=== PATIENT | male | born 1980 ===

== ENCOUNTER 2019-05-21 18:15 | Emergency (ER) | payer OTHER ==
[2019-05-21] MEDS ORDERED: Diazepam TAB(*) 5 MG PO ONE (19:42)
[2019-05-21] MEDS ORDERED: Ketorolac INJ* 30 MG/ML 1 ML VIAL IV PUSH ONE (19:42)
--- NOTE | 2019-05-21 20:29 | ED ---
Back Pain - HPI Summary HPI Summary: Pt is a 39 y/o M presenting to the ED brought in by EMS for back pain. He states he was walking down a flight of stairs at 1100 today when he felt a sudden sharp pain in his back, causing him to lie on the floor for about 6 hours until EMS was called. He denies any trauma or injury to the area, fever, incontinence, numbness, tingling, dysuria, or hematuria. He states lying flat alleviates the pain somewhat. Any movement worsens the pain. He has not taken any pain medication CLINICAL PSYCHOLOGIST LICENSED. - History of Current Complaint Chief Complaint: EDBackInjuryPain Stated Complaint: BACK PAIN PER EMS Time Seen by Provider: 05/21/19 19:24 Hx Obtained From: Patient Onset/Duration: Sudden Onset, Lasting Hours, Still Present Onset/Duration: Started Hours Ago, Still Present Timing: Constant, Lasting Hours Back Pain Location: Is Discrete @ - R lower back Severity Initially: Severe Severity Currently: Severe Pain Intensity: 10 Pain Scale Used: 0-10 Numeric Aggravating Symptom(s): Movement Alleviating Symptom(s): Rest Associated Signs And Symptoms: Negative: Fever, Numbness, Tingling, Bladder Incontinence, Bowel Incontinence - Allergies/Home Medications Allergies/Adverse Reactions: Allergies Allergy/AdvReac Type Severity Reaction Status Date / Time orange Allergy Difficulty Verified 05/21/19 18:34 Breathing PMH/Surg Hx/FS Hx/Imm Hx Previously Healthy: Yes Endocrine/Hematology History: Denies: Hx Diabetes Cardiovascular History: Denies: Hx Hypertension Infectious Disease History: No Infectious Disease History: Denies: Traveled Outside the [place] in Last 30 Days - Family History Known Family History: Negative: Diabetes - Social History Occupation: Student Alcohol Use: Occasionally Hx Substance Use: No Substance Use Type: Reports: None Hx Tobacco Use: No Smoking Status (MU): Never Smoked Tobacco Review of Systems Negative: Fever Negative: dysuria, hematuria, incontinence Positive: Myalgia - back pain Negative: Paresthesia, Numbness All Other Systems Reviewed And Are Negative: Yes Physical Exam - Summary Physical Exam Summary: Constitutional: Well-developed, Well-nourished, Alert. (-) Distressed Skin: Warm, Dry HENT: Normocephalic; Atraumatic Eyes: Conjunctiva normal Neck: Musculoskeletal ROM normal neck. (-) JVD, (-) Stridor, (-) Tracheal deviation Cardio: Rhythm regular, rate normal, Heart sounds normal; Intact distal pulses; Radial pulses are 2+ and symmetric. (-) Murmur Pulmonary/Chest wall: Effort normal. (-) Respiratory distress, (-) Wheezes, (-) Rales Abd: Soft, (-) tenderness, (-) Distension, (-) Guarding, (-) Rebound Musculoskeletal: (-) Edema. Point tenderness on R lower back lateral to midline. Pt able to range at both hips. No numbness bilaterally. Lymph: (-) Cervical adenopathy Neuro: Alert, Oriented x3 Psych: Mood and affect Normal Back: No CVA tenderness. Triage Information Reviewed: Yes Vital Signs On Initial Exam: Initial Vitals Pulse BP Pulse Ox 63 116/71 99 05/21/19 18:21 05/21/19 18:21 05/21/19 18:21 Vital Signs Reviewed: Yes Procedures - Procedure Summary Procedure Summary: Trigger point injection of 4cc of 1% lidocaine to the R lower back. - Sedation Patient Received Moderate/Deep Sedation with Procedure: No Diagnostics - Vital Signs Vital Signs Temp Pulse Resp BP Pulse Ox 05/21/19 19:58 20 05/21/19 19:22 64 101/51 95 05/21/19 19:00 66 100 05/21/19 18:52 67 101/54 98 05/21/19 18:32 97.2 F 66 16 116/71 100 05/21/19 18:21 63 116/71 99 - Laboratory Result Diagrams: 05/21/19 22:25 05/21/19 22:25 Lab Statement: Any lab studies that have been ordered have been reviewed, and results considered in the medical decision making process. Re-Evaluation - Re-Evaluation 1st re-eval Re-Evaluation Time: 20:24 Change: Unchanged Comment: I tried to sit the patient up to further examine his back but he could not d/t pain. 2nd re-eval Re-Evaluation Time: 21:38 Change: Improved Comment: Pt states he feels much better. Still unable to sit up. 3rd re-eval Re-Evaluation Time: 22:10 Change: Unchanged Comment: Pt still unable to sit up without pain. 4th re-eval Re-Evaluation Time: 23:30 Change: Unchanged Comment: Pt still has increased pain. Back Pain Course/Dx - Course Course Of Treatment: Patient is here with pinpoint back pain on the lower lateral back. Patient's episode occurred while was walking on stairs and was worse with movement. Patient had no red flag symptoms for back pain. Patient was given IV Toradol, by mouth Valium, IV morphine, a triple injection. Patient was finally able to see a bleed after this. Patient was discharged with Flexeril and lidocaine patches. - Diagnoses Provider Diagnoses: Lower back pain Discharge ED - Sign-Out/Discharge Documenting (check all that apply): Patient Departure - Discharge Plan Condition: Stable Disposition: HOME Prescriptions: Cyclobenzaprine TAB* [Flexeril 10 MG TAB*] 10 mg PO TID PRN #12 tab PRN Reason: muscle spasm Lidocaine 4% TOPICAL* 1 applic .SEE ORDER QAM #7 [email or web address] Patient Education Materials: Acute Low Back Pain (ED) Referrals: Faisal Parker, [employer] [Primary Care Provider] - Additional Instructions: Please follow up with your primary care provider within the next 1-3 days. Use Tylenol and Ibuprofen at home to control your pain. Additionally, take your prescribed muscle relaxant as instructed to help with the pain. You can also use heat and lidocaine patches. - Billing Disposition and Condition Condition: STABLE Disposition: Home - Attestation Statements Document Initiated by Freddie: Yes Documenting Scribe: Thi Lamar Provider For Whom Freddie is Documenting (Include Credential): Chris Campos MD. Scribe Attestation: Thi Cristobal, alma rosaed for Chris Campos MD. on 05/22/19 at 0455. Scribe Documentation Reviewed: Yes Provider Attestation: The documentation as recorded by the scribe, Thi Lamar accurately reflects the service I personally performed and the decisions made by , Chris Campos MD. Status of Scribe Document: Viewed
[2019-05-21] MEDS ORDERED: Morphine 4 MG/ML VIAL (1 ml) 4 MG/ML VIAL IV ONE (20:51)
[2019-05-21] MEDS ORDERED: NS 0.9% 1000 ML** 1,000 ML IV.FLUID IV ONE (21:00)
[2019-05-21 22:41] LABS: ABS Eosinophils 0.4 10^3/ul (0-0.6); ABS Lymphocytes 2.6 10^3/ul (1.0-4.8); ABS Monocytes 1.1 10^3/ul (0-0.8); Eosinophil % 3.5 %; Hematocrit 42 % (42-52); Hemoglobin 14.5 g/dL (14.0-18.0); Lymphocyte % 26.1 %; Mean Corpuscular HGB Conc 34 g/dL (31-36); Mean Corpuscular Hemoglobin 32 pg (27-31); Mean Corpuscular Volume 92 fL (80-94); Mean Platelet Volume 8.7 fL (7.4-10.4); Nucleated Red Blood Cells % 0.1; Platelet Count 234 10^3/uL (150-450); Red Blood Count 4.59 10^6 /uL (4.18-5.48); Red Cell Distribution Width 13 % (10-15); White Blood Count 10.1 10^3/uL (3.5-10.8)
[2019-05-21 22:51] LABS: Albumin/Globulin Ratio 1.7 (1-3); BUN/Creatinine Ratio 19.8 (8-20); C Reactive Protein 3.54 mg/L (<8.01); Calcium 9.1 mg/dL (8.6-10.3); EGFR African American 129.7 (>60); EGFR Non-African American 107.2 (>60); Globulin 2.4 g/dL (2-4); Potassium 3.3 mmol/L (3.5-5.0); Total Bilirubin 0.5 mg/dL (0.2-1.0); Total Protein 6.4 g/dL (6.4-8.9)
[2019-05-21 23:39] LABS: Urine Appearance Cloudy; Urine Bilirubin Negative (Negative); Urine Blood Negative (Negative); Urine Color Yellow; Urine Glucose Negative (Negative); Urine Ketones Trace (Negative); Urine Nitrite Negative (Negative); Urine Protein Negative (Negative); Urine Specific Gravity 1.012 (1.010-1.030); Urine Urobilinogen Negative (Negative)
[2019-05-21] MEDS ORDERED: HYDROcodone/ACETAMIN 5-325 MG* 1 TAB PO ONE (23:49)
[2019-05-22 00:14] LABS: Erythrocyte Sed Rate 7 mm/Hr (0-14)
[2019-05-22 00:46] VITALS: BP 115/71
== END 2019-05-22 | disposition home or self-care (01) ==
LOC: ED 18:15
DX: M54.5 Low back pain (principal)
CPT/HCPCS: 36415; 80053; 81003; 85025; 85652; 86140; 96361; 96374; 96375; 99283; A9270-GY; J1885; J2270